=== PATIENT | male | born 1950 | race Caucasian/White ===

== ENCOUNTER 2022-09-23 08:26 | Outpatient (CLI) | payer OTHER ==
[~2022-09-23 08:26] MED LIST: AMBIEN10 MG; COZAAR25 MG; DIOVAN HCT 160-1 TA1; DIOVAN HCT 1601 EACH; SYMBICORT 16010.2 GM; TRISPEC DMX LI118 ML; ZANTAC300 MG
== END 2022-09-23 08:38 | disposition home or self-care (01) ==
LOC: RX STUDY 08:26
PROVIDERS: ATTEND Internal Medicine Gastroenterology
DX: K21.9 Gastro-esophageal reflux disease without esophagitis (principal); R10.13 Epigastric pain